=== PATIENT | female | born 1995 | race Caucasian/White ===

== ENCOUNTER 2019-01-09 22:29 | Inpatient (IN) | payer OTHER ==
[~2019-01-09] VITALS: Ht 165.1 cm; Wt 67.0 kg
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
--- NOTE | 2019-01-09 22:57 | NUR ---
PT IS NOT ABLE TO PROVIDE URINE SAMPLE AT THIS TIME.
[2019-01-09 23:20] LABS: BASOPHILS # (AUTO) 0.06 x10^3/uL (0-0.1); BASOPHILS % (AUTO) 1 % (0-1); EOSINOPHILS # (AUTO) 0.16 x10^3/uL (0-0.4); EOSINOPHILS % (AUTO) 2 % (1-7); LYMPHOCYTES # (AUTO) 2.19 x10^3/uL (1-3.4); LYMPHOCYTES % (AUTO) 25 % (22-44); MD NO; MEAN CORPUSCULAR HEMOGLOBIN 29.2 pg (27.0-34.8); MEAN CORPUSCULAR VOLUME 88.3 fL (80-100); MEAN PLATELET VOLUME 9.3 fL (7.4-10.4); MONOCYTES # (AUTO) 0.93 x10^3/uL (0.2-0.8); MONOCYTES % (AUTO) 11 % (2-9); NEUTROPHILS # (AUTO) 5.51 x10^3/uL (1.8-6.8); NEUTROPHILS % (AUTO) 62 % (42-75); PLATELET COUNT 220 x10^3/uL (130-400); RED BLOOD COUNT 4.93 x10^6/uL (3.82-5.3); RED CELL DISTRIBUTION WIDTH 13.9 % (9.6-15.2)
[2019-01-09 23:25] LABS: ALANINE AMINOTRANSFERASE 20 U/L (12-78); ALBUMIN 3.7 g/dL (3.4-5.0); ANION GAP 6 mmol/L (5-15); CALCIUM 8.5 mg/dL (8.5-10.1); CHLORIDE 114 mmol/L (98-107); CREATININE 0.74 mg/dL (0.55-1.02)
[2019-01-09 23:26] LABS: SALICYLATE LEVEL < 1.7 mg/dL (2.8-20.0)
[2019-01-09 23:27] LABS: ALKALINE PHOSPHATASE 65 U/L (45-117); BILIRUBIN,TOTAL 0.3 mg/dL (0.2-1.0); TOTAL PROTEIN 7.1 g/dL (6.4-8.2)
--- NOTE | 2019-01-10 01:03 | NUR ---
PT SLEEPING IN [facility]. BP/SPO2 MONITORS IN PLACE. SITTER MONITORING FROM [facility].
--- NOTE | 2019-01-10 02:06 | NUR ---
PT IS NOT ABLE TO PROVIDE URINE SAMPLE YET.
--- NOTE | 2019-01-10 02:24 | NUR ---
PT PROVIDED SOME WATER TO URINATE.
--- NOTE | 2019-01-10 02:39 | NUR ---
PT AMB TO BR AND BACK TO ROOM WITH STEADY GAIT. UA SENT.
[2019-01-10 02:54] LABS: AMPHETAMINE SCREEN, URINE Negative (Negative); BARBITURATE SCREEN, URINE Negative (Negative); BENZODIAZEPINE SCREEN, URINE Negative (Negative); CANNABINOID SCREEN, URINE Negative (Negative); COCAINE SCREEN, URINE Negative (Negative); METHADONE SCREEN, URINE Negative (Negative); OPIATE SCREEN, URINE Negative (Negative)
--- NOTE | 2019-01-10 03:26 | NUR ---
PT SLEEPING IN [facility]. RESPS EVEN AND UNLABORED. SITTER MONITORING FROM [facility].
--- NOTE | 2019-01-10 04:49 | NUR ---
PT STILL SLEEPING IN [facility]. RESPS EVEN AND UNLABORED. SITTER MONITORING FROM COUNTS INCLUDE 234 BEDS AT THE [facility].
--- NOTE | 2019-01-10 04:58 | NUR ---
REPORT GIVEN TO ED RN. ALL QUESTIONS ANSWERED.
[2019-01-10 05:00] LABS: HCG UR SG 1.032 (1.003-1.030)
[2019-01-10] MEDS ORDERED: LORazepam 1MG TABLET PO PRN (05:00)
[2019-01-10 05:20] VITALS: BP 92/61
[2019-01-10 05:30] VITALS: BP 92/61
[2019-01-10 08:07] VITALS: BP 94/65
== END 2019-01-10 18:19 | disposition home or self-care (01) | DRG 885 ==
LOC: ED 01-10 01:41 → EDIP 01-10 03:14 → 2N 01-10 05:04
PROVIDERS: ADMIT Family Medicine; ATTEND Family Medicine
DX: F33.9 Major depressive disorder, recurrent, unspecified (principal); R45.851 Suicidal ideations; X78.9XXA Intentional self-harm by unspecified sharp object, initial encounter; F41.0 Panic disorder [episodic paroxysmal anxiety]; F17.200 Nicotine dependence, unspecified, uncomplicated
CPT/HCPCS: 36415; 80053; 80307; 81025; 85025; G0378